=== PATIENT | female | born 1955 | race African-American/Black ===

== ENCOUNTER 2022-10-14 17:18 | Inpatient (IN) | payer MEDICARE ==
[~2022-10-14] VITALS: Ht 157.5 cm; Wt 64.4 kg
[2022-10-14] MEDS ORDERED: ACETAMINOPHEN 325MG TABLET PO ONE (18:15)
[2022-10-14] MEDS ORDERED: IBUPROFEN 400MG TABLET PO ONE (18:15)
[2022-10-14 20:12] LABS: HEMATOCRIT. 34.6 % (36.0-48.0); HEMOGLOBIN. 11.9 g/dL (12.0-16.0); MEAN CORPUSCULAR HEMOGLOBIN 32.1 pg (28.0-32.0); PLATELET 194 x1000/uL (130-400); RED BLOOD CELL COUNT 3.72 mill/uL (4.2-5.4); RED CELL DISTRIBUTION WIDTH 13.1 % (11.6-14.6)
[2022-10-14 20:20] LABS: CHLORIDE 105 mEq/L (98-107); INR 1.1; PROTHROMBIN TIME 11.6 sec (9.6-11.0)
[2022-10-14] MEDS ORDERED: POTASSIUM CHLORIDE 20MEQ TABLET SR PO ONE (20:30)
[2022-10-14] MEDS ORDERED: POTASSIUM CHLORIDE 20MEQ TABLET SR PO NR (20:45)
[2022-10-14 20:51] LABS: PLATELET ESTIMATE NORMAL
[2022-10-14] MEDS ORDERED: CLONIDINE 0.1MG TABLET PO PRN (21:00)
[2022-10-14] MEDS ORDERED: KETOROLAC 15MG/ML VIAL IV PRN (21:00)
[2022-10-14] MEDS ORDERED: NITROGLYCERIN 0.4MG TABLET SL SL PRN (21:00)
[2022-10-14] MEDS ORDERED: GUAIFENESIN 200MG/10ML SUGAR FREE UDC PO PRN (21:00)
[2022-10-14] MEDS ORDERED: MORPHINE SULFATE 2 MG/ML CPJ (NOT FOR IM USE) IV PRN (21:00)
[2022-10-14] MEDS ORDERED: ONDANSETRON HCL 4MG/2ML INJ IV PRN (21:00)
[2022-10-14] MEDS ORDERED: ZOLPIDEM TARTRATE 5MG TABLET PO PRN (21:00)
[2022-10-14] MEDS ORDERED: NA PHOS,M-B/NA PHOS,DI-BA ENEMA 118ML PR PRN (21:00)
[2022-10-14] MEDS ORDERED: DOCUSATE SODIUM 100MG CAPSULE PO PRN (21:00)
[2022-10-14] MEDS ORDERED: HYDROCODONE/ACETAMINOPHEN 10/325MG TABLET PO PRN (21:00)
[2022-10-14] MEDS ORDERED: MAGNESIUM/ALUMINUM HYDROXIDE/SIMETHICONE 30ML UDC PO PRN (21:00)
[2022-10-14] MEDS ORDERED: ACETAMINOPHEN 325MG TABLET PO PRN ×2 (21:00)
[2022-10-14] MEDS ORDERED: IPRATROPIUM/ALBUTEROL 0.5-3(2.5)MG/3ML NEB NEB PRN (21:00)
[2022-10-14] MEDS ORDERED: NALOXONE HCL 0.4MG/ML VIAL IV PRN (21:45)
[2022-10-14 22:04] LABS: ETHANOL BLOOD < 10 mg/dL; LDL CHOLESTEROL 132 mg/dL (5-100); TOTAL IRON BINDING CAPACITY 330 ug/dL (250-450)
[2022-10-14 22:14] LABS: HDL CHOLESTEROL 72 mg/dL (40-59); T4 FREE 1.13 ng/dL (0.76-1.46)
[2022-10-14] MEDS: MAGNESIUM OXIDE 400MG TABLET PO SCH (22:21)
[2022-10-14 22:34] LABS: VITAMIN B12 SERUM 571 pg/mL (211-911)
[2022-10-14 22:37] LABS: FOLIC ACID (FOLATE) SERUM > 20.00 ng/mL (>5.38)
[2022-10-15] MEDS ORDERED: HYDRALAZINE 20MG/ML VIAL IV PRN (01:15)
[2022-10-15] MEDS: FAMOTIDINE 20MG TABLET PO SCH ×3 (03:50→21:00)
[2022-10-15] MEDS: ASCORBIC ACID 500 MG TABLET PO SCH ×3 (03:50→21:00)
[2022-10-15] MEDS: SODIUM CHLORIDE 0.9% 1,000 ML IV SCH ×3 (04:05→22:00)
[2022-10-15 04:26] LABS: HEMATOCRIT. 35.9 % (36.0-48.0); HEMOGLOBIN. 12.4 g/dL (12.0-16.0); MEAN CORPUSCULAR HEMOGLOBIN 32.1 pg (28.0-32.0); MEAN CORPUSCULAR VOLUME 92.8 fL (81.0-99.0); MEAN PLATELET VOLUME 7.7 fl (7.4-10.4); PLATELET 166 x1000/uL (130-400); RED BLOOD CELL COUNT 3.87 mill/uL (4.2-5.4); RED CELL DISTRIBUTION WIDTH 12.8 % (11.6-14.6)
[2022-10-15 04:55] LABS: CHLORIDE 104 mEq/L (98-107)
[2022-10-15 05:01] LABS: PHOSPHORUS 3.2 mg/dL (2.5-4.9)
[2022-10-15] MEDS ORDERED: ENOXAPARIN 40MG/0.4ML SYR SUBCUT SCH (09:00)
[2022-10-15] MEDS: AMLODIPINE 10MG TABLET PO SCH (09:51)
[2022-10-15] MEDS: MAGNESIUM OXIDE 400MG TABLET PO SCH (09:52)
[2022-10-15] MEDS: ZINC SULFATE 220 MG ( 50 ) CAPSULE PO SCH (09:52)
[2022-10-15] MEDS ORDERED: CEFAZOLIN SODIUM 1000MG/VIAL ONE (14:06)
[2022-10-15] MEDS ORDERED: DEXAMETHASONE 4MG/ML 1ML VIAL ONE (14:06)
[2022-10-15] MEDS ORDERED: ONDANSETRON HCL 4MG/2ML INJ ONE (14:06)
[2022-10-15] MEDS ORDERED: ROCURONIUM BROMIDE 10MG/ML VIAL 5ML IV ONE (14:07)
[2022-10-15] MEDS ORDERED: PROPOFOL 200MG/20ML VIAL IV ONE (14:07)
[2022-10-15] MEDS ORDERED: LIDOCAINE HCL 1% 10 MG/ML 10ML VIAL ONE (14:07)
[2022-10-15] MEDS ORDERED: POLYMYXIN B SULFATE 500000 UNITS/VIAL ONE (14:12)
[2022-10-15] MEDS ORDERED: VANCOMYCIN HCL 1 GM/VIAL ONE (14:12)
[2022-10-15] MEDS ORDERED: EPINEPHRINE 1:1000 1 MG/ML AMP ONE (14:13)
[2022-10-15] MEDS ORDERED: BUPIVACAINE HCL/PF 0.5% (5MG/ML) 30ML ONE (14:13)
[2022-10-15] MEDS ORDERED: LIDOCAINE HCL/EPINEPHRINE 1%-EPI 1:100,000 30 ML VIAL INFIL ONE (14:13)
[2022-10-15] MEDS ORDERED: KETOROLAC 30MG/ML VIAL ONE (14:13)
[2022-10-15] MEDS ORDERED: FENTANYL CITRATE/PF 50MCG/ML 2ML VIAL ONE (14:26)
[2022-10-15] MEDS ORDERED: MIDAZOLAM HCL 2 MG/2 ML VIAL ONE (14:26)
[2022-10-15] MEDS ORDERED: HYDROMORPHONE HCL/PF 2MG/ML CPJ IV PRN ×2 (14:30→16:30)
[2022-10-15] MEDS ORDERED: ONDANSETRON HCL 4MG/2ML INJ IV PRN ×2 (14:30→16:30)
[2022-10-15] MEDS ORDERED: HYDROCODONE/ACETAMINOPHEN 5/325MG TABLET PO PRN ×2 (14:30)
[2022-10-15] MEDS ORDERED: LABETALOL 5MG/ML SYR 20 MG/4 ML SYRINGE IV PRN (16:30)
[2022-10-15] MEDS ORDERED: MEPERIDINE HCL/PF 25MG/ML CPJ IV PRN (16:30)
[2022-10-15 16:53] LABS: PLATELET ESTIMATE NORMAL
[2022-10-15] MEDS ORDERED: ONDANSETRON INJ IV PRN (17:15)
[2022-10-15] MEDS ORDERED: NALOXONE INJ IV PRN (17:15)
[2022-10-15] MEDS ORDERED: HYDROMORPHONE PCA 10MG/50ML IV PRN (17:15)
[2022-10-15] MEDS: ATORVASTATIN CALCIUM 40MG TABLET PO SCH (21:00)
[2022-10-15 22:00] VITALS: BP 130/70
[2022-10-16] MEDS: SODIUM CHLORIDE 0.9% 1,000 ML IV SCH ×2 (05:27→18:12)
[2022-10-16] MEDS: CEFAZOLIN 1000MG PREMIX 50 ML IV SCH ×2 (06:11→14:55)
[2022-10-16 07:13] LABS: BASOPHILS % 0.3 % (0.0-2.0); EOSINOPHILS % 0.5 % (0.0-5.0); HEMATOCRIT. 27.3 % (36.0-48.0); HEMOGLOBIN. 9.5 g/dL (12.0-16.0); LYMPHOCYTES % 7.4 % (20.0-50.0); MEAN CORPUSCULAR HEMOGLOBIN 32.5 pg (28.0-32.0); MEAN PLATELET VOLUME 8.4 fl (7.4-10.4); NEUTROPHILS % 82.8 % (40.0-76.0); PLATELET 127 x1000/uL (130-400); RED BLOOD CELL COUNT 2.93 mill/uL (4.2-5.4); RED CELL DISTRIBUTION WIDTH 12.8 % (11.6-14.6)
[2022-10-16 08:00] VITALS: BP 123/64
[2022-10-16] MEDS: FAMOTIDINE 20MG TABLET PO SCH ×2 (08:56→21:07)
[2022-10-16] MEDS: ZINC SULFATE 220 MG ( 50 ) CAPSULE PO SCH (08:56)
[2022-10-16] MEDS: ASCORBIC ACID 500 MG TABLET PO SCH ×2 (08:56→21:07)
[2022-10-16] MEDS: AMLODIPINE 10MG TABLET PO SCH (08:56)
[2022-10-16] MEDS: ENOXAPARIN 40MG/0.4ML SYR SUBCUT SCH (08:57)
[2022-10-16 12:00] VITALS: BP 129/63
[2022-10-16] MEDS ORDERED: ALBUTEROL (0.083%) 2.5MG/3ML NEB HHN PRN (13:15)
[2022-10-16] MEDS ORDERED: IPRATROPIUM BROMIDE (0.02%) 0.5MG/2.5ML NEB HHN PRN (13:15)
[2022-10-16] MEDS ORDERED: HYDRALAZINE 10 MG in SODIUM CHLORIDE 0.9% 49.5 ML IV PRN (15:30)
[2022-10-16 15:54] VITALS: BP 126/63
[2022-10-16 20:34] VITALS: BP 132/54
[2022-10-16] MEDS: ATORVASTATIN CALCIUM 40MG TABLET PO SCH (21:07)
[2022-10-17] VITALS (8 sets, daily range): BP systolic 123–136; BP diastolic 63–68
[2022-10-17] MEDS: SODIUM CHLORIDE 0.9% 1,000 ML IV SCH (04:38)
[2022-10-17 07:03] LABS: BASOPHILS % 0.1 % (0.0-2.0); EOSINOPHILS % 0.6 % (0.0-5.0); HEMATOCRIT. 25.8 % (36.0-48.0); HEMOGLOBIN. 9.1 g/dL (12.0-16.0); LYMPHOCYTES % 8.3 % (20.0-50.0); MEAN CORPUSCULAR HEMOGLOBIN 32.8 pg (28.0-32.0); MEAN CORPUSCULAR VOLUME 92.6 fL (81.0-99.0); MEAN PLATELET VOLUME 8.9 fl (7.4-10.4); PLATELET 118 x1000/uL (130-400); RED BLOOD CELL COUNT 2.78 mill/uL (4.2-5.4)
[2022-10-17 07:24] LABS: CHLORIDE 106 mEq/L (98-107)
[2022-10-17] MEDS ORDERED: BISACODYL 10MG SUPP PR NR (09:15)
[2022-10-17] MEDS ORDERED: POLYETHYLENE GLYCOL 3350 (17GM) 1 DOSE PACK PO SCH (09:15)
[2022-10-17] MEDS: ZINC SULFATE 220 MG ( 50 ) CAPSULE PO SCH (09:21)
[2022-10-17] MEDS: FAMOTIDINE 20MG TABLET PO SCH (09:21)
[2022-10-17] MEDS: ENOXAPARIN 40MG/0.4ML SYR SUBCUT SCH (09:21)
[2022-10-17] MEDS: AMLODIPINE 10MG TABLET PO SCH (09:21)
[2022-10-17] MEDS: ASCORBIC ACID 500 MG TABLET PO SCH (09:21)
[2022-10-17] MEDS ORDERED: HYDROCODONE/ACETAMINOPHEN 10/325MG TABLET PO PRN ×2 (10:15)
[2022-10-17] MEDS ORDERED: IRON SUCROSE COMPLEX 100 MG/5 ML ML IV NR (11:00)
[2022-10-17] MEDS ORDERED: FERROUS SULFATE 300MG/5ML UDC PO SCH (12:50)
== END 2022-10-17 15:26 | DRG 956 ==
LOC: ER 17:18 → MICUSO 20:24 → SUPCPDRO 20:53 → 6EST 10-16 00:04
PROVIDERS: ADMIT Internal Medicine; ATTEND Internal Medicine
PROC: 0SRR01Z Replacement of Right Hip Joint, Femoral Surface with Metal Synthetic Substitute, Open Approach (ICD-10-PCS; principal; 2022-10-15)
DX: S72.001A Fracture of unspecified part of neck of right femur, initial encounter for closed fracture (principal); S32.591A Other specified fracture of right pubis, initial encounter for closed fracture; I16.0 Hypertensive urgency; E78.00 Pure hypercholesterolemia, unspecified; D64.9 Anemia, unspecified; E03.8 Other specified hypothyroidism; E87.6 Hypokalemia; R26.9 Unspecified abnormalities of gait and mobility; E78.5 Hyperlipidemia, unspecified; Z90.710 Acquired absence of both cervix and uterus; Z79.899 Other long term (current) drug therapy; Z82.49 Family history of ischemic heart disease and other diseases of the circulatory system; V89.2XXA Person injured in unspecified motor-vehicle accident, traffic, initial encounter; Y93.89 Activity, other specified; Y92.89 Other specified places as the place of occurrence of the external cause; Y99.8 Other external cause status; I10 Essential (primary) hypertension; Z20.822 Contact with and (suspected) exposure to COVID-19; V09.9XXA Pedestrian injured in unspecified transport accident, initial encounter
CPT/HCPCS: 36415; 71045; 72170; 73502; 73552; 80053; 80061; 80320; 82607; 82746; 83036; 83540; 83550; 83735; 84100; 84439; 84443; 85025; 86850; 86900; 87426; 88311; 93005; 93970; 97116; 97162; 97166; 97530; 99285; J0690; J1100; J1170; J1650; J1885; J2250; J2405; J2704; J3010; J3370; J3490; J7030; C1776; G0480

== ENCOUNTER 2022-10-17 15:26 | Inpatient (IN) | payer OTHER, MEDICARE ==
[~2022-10-17] VITALS: Ht 162.6 cm; Wt 59.9 kg
[2022-10-17 15:30] VITALS: BP 147/63
[2022-10-17] MEDS ORDERED: HYDROCODONE/ACETAMINOPHEN 10/325MG TABLET PO PRN ×2 (16:30)
[2022-10-17] MEDS ORDERED: IPRATROPIUM BROMIDE (0.02%) 0.5MG/2.5ML NEB HHN PRN (16:30)
[2022-10-17] MEDS ORDERED: NA PHOS,M-B/NA PHOS,DI-BA ENEMA 118ML PR PRN (16:30)
[2022-10-17] MEDS ORDERED: ACETAMINOPHEN 325MG TABLET PO PRN (16:30)
[2022-10-17] MEDS ORDERED: GUAIFENESIN 200MG/10ML SUGAR FREE UDC PO PRN (16:30)
[2022-10-17] MEDS ORDERED: HYDRALAZINE 10 MG in SODIUM CHLORIDE 0.9% 49.5 ML IV PRN (16:30)
[2022-10-17] MEDS ORDERED: ZOLPIDEM TARTRATE 5MG TABLET PO PRN (16:30)
[2022-10-17] MEDS ORDERED: NALOXONE HCL 0.4 MG/ML 1ML VIAL IV PRN (16:30)
[2022-10-17] MEDS ORDERED: CLONIDINE 0.1MG TABLET PO PRN (16:30)
[2022-10-17] MEDS ORDERED: ALBUTEROL (0.083%) 2.5MG/3ML NEB HHN PRN (16:30)
[2022-10-17] MEDS ORDERED: MAGNESIUM/ALUMINUM HYDROXIDE/SIMETHICONE 30ML UDC PO PRN (16:30)
[2022-10-17 17:26] VITALS: BP 147/63
[2022-10-17] MEDS: FERROUS SULFATE 300MG/5ML UDC PO SCH (17:59)
[2022-10-17] MEDS ORDERED: PNEUMOCOCCAL 23-VAL P-SAC VAC 0.5 ML IM ONE (19:45)
[2022-10-17] MEDS ORDERED: INFLUENZA VACCINE 05/PF 0.5 ML SYRINGE IM ONE (19:45)
[2022-10-17 19:48] VITALS: BP 110/56
[2022-10-17] MEDS: ATORVASTATIN CALCIUM 40MG TABLET PO SCH (21:04)
[2022-10-17] MEDS: ASCORBIC ACID 500 MG TABLET PO SCH (21:04)
[2022-10-18] MEDS: SODIUM CHLORIDE 0.9% 1,000 ML IV SCH ×3 (01:50→22:00)
[2022-10-18 06:11] LABS: CHLORIDE 103 mEq/L (98-107)
[2022-10-18 06:26] LABS: BASOPHILS % 0.8 % (0.0-2.0); EOSINOPHILS % 2.8 % (0.0-5.0); HEMATOCRIT. 24.8 % (36.0-48.0); HEMOGLOBIN. 8.7 g/dL (12.0-16.0); LYMPHOCYTES % 11.6 % (20.0-50.0); MEAN CORPUSCULAR HEMOGLOBIN 32.3 pg (28.0-32.0); MEAN CORPUSCULAR VOLUME 92.4 fL (81.0-99.0); MEAN PLATELET VOLUME 9.1 fl (7.4-10.4); MONOCYTES % 9.6 % (2.0-8.0); NEUTROPHILS % 75.2 % (40.0-76.0); PLATELET 123 x1000/uL (130-400); RED BLOOD CELL COUNT 2.68 mill/uL (4.2-5.4); RED CELL DISTRIBUTION WIDTH 12.7 % (11.6-14.6)
[2022-10-18 06:28] LABS: TOTAL IRON BINDING CAPACITY 209 ug/dL (250-450)
[2022-10-18 06:36] LABS: FOLIC ACID (FOLATE) SERUM 19.5 ng/mL (>5.38)
[2022-10-18 08:00] VITALS: BP 133/62
[2022-10-18] MEDS: KETOROLAC 15MG/ML VIAL IV PRN (09:00)
[2022-10-18] MEDS: ENOXAPARIN 40MG/0.4ML SYR SUBCUT SCH (09:01)
[2022-10-18] MEDS: POLYETHYLENE GLYCOL 3350 (17GM) 1 DOSE PACK PO SCH (09:02)
[2022-10-18] MEDS: ASCORBIC ACID 500 MG TABLET PO SCH ×2 (09:02→20:54)
[2022-10-18] MEDS: FAMOTIDINE 20MG TABLET PO SCH (09:02)
[2022-10-18] MEDS: FERROUS SULFATE 300MG/5ML UDC PO SCH ×3 (09:02→16:50)
[2022-10-18] MEDS: ZINC SULFATE 220 MG ( 50 ) CAPSULE PO SCH (09:02)
[2022-10-18] MEDS: AMLODIPINE 10MG TABLET PO SCH (09:03)
[2022-10-18 20:00] VITALS: BP 111/52
[2022-10-18] MEDS: ATORVASTATIN CALCIUM 40MG TABLET PO SCH (20:54)
[2022-10-19] MEDS: SODIUM CHLORIDE 0.9% 1,000 ML IV SCH ×2 (07:18→17:50)
[2022-10-19 08:00] VITALS: BP 109/57
[2022-10-19] MEDS: KETOROLAC 15MG/ML VIAL IV PRN (08:49)
[2022-10-19] MEDS: FERROUS SULFATE 300MG/5ML UDC PO SCH ×3 (09:54→17:49)
[2022-10-19] MEDS: POLYETHYLENE GLYCOL 3350 (17GM) 1 DOSE PACK PO SCH (09:54)
[2022-10-19] MEDS: AMLODIPINE 10MG TABLET PO SCH (10:00)
[2022-10-19] MEDS: FAMOTIDINE 20MG TABLET PO SCH (10:01)
[2022-10-19] MEDS: ASCORBIC ACID 500 MG TABLET PO SCH ×2 (10:01→21:51)
[2022-10-19] MEDS: DOCUSATE SODIUM 100MG CAPSULE PO PRN (10:02)
[2022-10-19] MEDS: ENOXAPARIN 40MG/0.4ML SYR SUBCUT SCH (10:02)
[2022-10-19] MEDS: ZINC SULFATE 220 MG ( 50 ) CAPSULE PO SCH (10:08)
[2022-10-19] MEDS: ACETAMINOPHEN 325MG TABLET PO PRN (10:09)
[2022-10-19] MEDS ORDERED: NALOXONE HCL 0.4MG/ML VIAL IV PRN (11:00)
[2022-10-19] MEDS: TRAMADOL 50MG TABLET PO PRN (13:01)
[2022-10-19 20:00] VITALS: BP 122/54
[2022-10-19] MEDS: ATORVASTATIN CALCIUM 40MG TABLET PO SCH (21:50)
[2022-10-19] MEDS ORDERED: SODIUM CHLORIDE 0.9% 1,000 ML IV ONE (22:00)
[2022-10-20] MEDS: SODIUM CHLORIDE 0.9% 1,000 ML IV SCH (04:00)
[2022-10-20 08:00] VITALS: BP 117/63
[2022-10-20] MEDS: POLYETHYLENE GLYCOL 3350 (17GM) 1 DOSE PACK PO SCH (09:00)
[2022-10-20] MEDS: FERROUS SULFATE 300MG/5ML UDC PO SCH ×3 (09:12→17:43)
[2022-10-20] MEDS: FAMOTIDINE 20MG TABLET PO SCH (09:13)
[2022-10-20] MEDS: ASCORBIC ACID 500 MG TABLET PO SCH ×2 (09:13→20:45)
[2022-10-20] MEDS: ZINC SULFATE 220 MG ( 50 ) CAPSULE PO SCH (09:13)
[2022-10-20] MEDS: DOCUSATE SODIUM 100MG CAPSULE PO PRN (09:13)
[2022-10-20] MEDS: AMLODIPINE 10MG TABLET PO SCH (09:13)
[2022-10-20] MEDS: ENOXAPARIN 40MG/0.4ML SYR SUBCUT SCH (09:14)
[2022-10-20 20:00] VITALS: BP 120/56
[2022-10-20] MEDS: ATORVASTATIN CALCIUM 40MG TABLET PO SCH (20:45)
[2022-10-21] MEDS: TRAMADOL 50MG TABLET PO PRN ×2 (07:00→13:43)
[2022-10-21 08:00] VITALS: BP 126/60
[2022-10-21] MEDS: FERROUS SULFATE 300MG/5ML UDC PO SCH ×3 (09:21→17:19)
[2022-10-21] MEDS: ASCORBIC ACID 500 MG TABLET PO SCH ×2 (09:21→20:12)
[2022-10-21] MEDS: POLYETHYLENE GLYCOL 3350 (17GM) 1 DOSE PACK PO SCH (09:22)
[2022-10-21] MEDS: FAMOTIDINE 20MG TABLET PO SCH (09:22)
[2022-10-21] MEDS: ENOXAPARIN 40MG/0.4ML SYR SUBCUT SCH (09:22)
[2022-10-21] MEDS: ZINC SULFATE 220 MG ( 50 ) CAPSULE PO SCH (09:22)
[2022-10-21] MEDS: AMLODIPINE 10MG TABLET PO SCH (09:22)
[2022-10-21 19:10] LABS: 25-HYDROXY VITAMIN D3 25 ng/mL (.)
[2022-10-21 20:00] VITALS: BP 110/59
[2022-10-21] MEDS: ATORVASTATIN CALCIUM 40MG TABLET PO SCH (20:12)
[2022-10-22] MEDS: TRAMADOL 50MG TABLET PO PRN ×2 (05:24→12:53)
[2022-10-22 08:00] VITALS: BP 114/60
[2022-10-22] MEDS: ASCORBIC ACID 500 MG TABLET PO SCH ×2 (08:59→20:23)
[2022-10-22] MEDS: ZINC SULFATE 220 MG ( 50 ) CAPSULE PO SCH (08:59)
[2022-10-22] MEDS: AMLODIPINE 10MG TABLET PO SCH (08:59)
[2022-10-22] MEDS: FAMOTIDINE 20MG TABLET PO SCH (08:59)
[2022-10-22] MEDS: ENOXAPARIN 40MG/0.4ML SYR SUBCUT SCH (08:59)
[2022-10-22] MEDS: FERROUS SULFATE 300MG/5ML UDC PO SCH ×3 (08:59→16:46)
[2022-10-22] MEDS: POLYETHYLENE GLYCOL 3350 (17GM) 1 DOSE PACK PO SCH (09:02)
[2022-10-22] MEDS ORDERED: ERGOCALCIFEROL 50000UNITS CAPSULE PO SCH (15:00)
[2022-10-22] MEDS: DOCUSATE SODIUM 100MG CAPSULE PO SCH (16:51)
[2022-10-22] MEDS: CYANOCOBALAMIN 1000MCG/ML VIAL IM SCH (16:52)
[2022-10-22 19:46] VITALS: BP 128/61
[2022-10-22] MEDS: ATORVASTATIN CALCIUM 40MG TABLET PO SCH (20:23)
[2022-10-22] MEDS: ACETAMINOPHEN 325MG TABLET PO PRN (23:11)
[2022-10-23] MEDS: TRAMADOL 50MG TABLET PO PRN ×5 (05:07→21:58)
[2022-10-23 07:41] LABS: CHLORIDE 102 mEq/L (98-107)
[2022-10-23 07:46] LABS: BASOPHILS % 0.7 % (0.0-2.0); EOSINOPHILS % 2.3 % (0.0-5.0); HEMATOCRIT. 25.1 % (36.0-48.0); HEMOGLOBIN. 8.8 g/dL (12.0-16.0); LYMPHOCYTES % 9.8 % (20.0-50.0); MEAN CORPUSCULAR HEMOGLOBIN 33.1 pg (28.0-32.0); MEAN CORPUSCULAR VOLUME 94.6 fL (81.0-99.0); MEAN PLATELET VOLUME 8.5 fl (7.4-10.4); MONOCYTES % 10.1 % (2.0-8.0); NEUTROPHILS % 77.1 % (40.0-76.0); PLATELET 289 x1000/uL (130-400); RED BLOOD CELL COUNT 2.65 mill/uL (4.2-5.4)
[2022-10-23 08:00] VITALS: BP 107/50
[2022-10-23] MEDS: CYANOCOBALAMIN 1000MCG/ML VIAL IM SCH (08:42)
[2022-10-23] MEDS: DOCUSATE SODIUM 100MG CAPSULE PO SCH ×2 (08:42→16:20)
[2022-10-23] MEDS: ZINC SULFATE 220 MG ( 50 ) CAPSULE PO SCH (08:42)
[2022-10-23] MEDS: AMLODIPINE 10MG TABLET PO SCH (08:42)
[2022-10-23] MEDS: FAMOTIDINE 20MG TABLET PO SCH (08:42)
[2022-10-23] MEDS: POLYETHYLENE GLYCOL 3350 (17GM) 1 DOSE PACK PO SCH (08:43)
[2022-10-23] MEDS: ENOXAPARIN 40MG/0.4ML SYR SUBCUT SCH (08:44)
[2022-10-23] MEDS: FERROUS SULFATE 300MG/5ML UDC PO SCH ×3 (08:46→16:20)
[2022-10-23] MEDS: ASCORBIC ACID 500 MG TABLET PO SCH ×2 (08:46→21:00)
[2022-10-23 20:00] VITALS: BP 124/63
[2022-10-23] MEDS: ATORVASTATIN CALCIUM 40MG TABLET PO SCH (21:00)
[2022-10-24] MEDS: TRAMADOL 50MG TABLET PO PRN ×2 (04:58→21:40)
[2022-10-24 08:00] VITALS: BP 120/55
[2022-10-24] MEDS: ASCORBIC ACID 500 MG TABLET PO SCH ×2 (09:00→20:50)
[2022-10-24] MEDS: ZINC SULFATE 220 MG ( 50 ) CAPSULE PO SCH (10:16)
[2022-10-24] MEDS: FERROUS SULFATE 300MG/5ML UDC PO SCH ×3 (10:16→18:34)
[2022-10-24] MEDS: POLYETHYLENE GLYCOL 3350 (17GM) 1 DOSE PACK PO SCH (10:17)
[2022-10-24] MEDS: AMLODIPINE 10MG TABLET PO SCH (10:17)
[2022-10-24] MEDS: DOCUSATE SODIUM 100MG CAPSULE PO SCH ×2 (10:17→18:35)
[2022-10-24] MEDS: HYDROCODONE/ACETAMINOPHEN 5/325MG TABLET PO PRN (10:17)
[2022-10-24] MEDS: FAMOTIDINE 20MG TABLET PO SCH (10:17)
[2022-10-24] MEDS: ENOXAPARIN 40MG/0.4ML SYR SUBCUT SCH (11:54)
[2022-10-24] MEDS: CYANOCOBALAMIN 1000MCG/ML VIAL IM SCH (11:54)
[2022-10-24] MEDS ORDERED: LACTULOSE 20G/30ML UDC PO SCH ×3 (15:00→22:00)
[2022-10-24 20:00] VITALS: BP 119/53
[2022-10-24] MEDS: ATORVASTATIN CALCIUM 40MG TABLET PO SCH (20:50)
[2022-10-25] MEDS: HYDROCODONE/ACETAMINOPHEN 5/325MG TABLET PO PRN ×3 (03:36→23:02)
[2022-10-25] MEDS ORDERED: ZINC220C2 PO (10:04)
[2022-10-25] MEDS ORDERED: AMLO10TA80 PO (10:04)
[2022-10-25] MEDS ORDERED: DOCU-150 PO (10:04)
[2022-10-25] MEDS ORDERED: LIP40 PO (10:04)
[2022-10-25] MEDS ORDERED: FE300LUD PO (10:04)
[2022-10-25] MEDS ORDERED: ASCO500T20 PO (10:04)
[2022-10-25 11:00] VITALS: BP 118/64
[2022-10-25] MEDS: DOCUSATE SODIUM 100MG CAPSULE PO SCH ×2 (11:00→18:14)
[2022-10-25] MEDS: AMLODIPINE 10MG TABLET PO SCH (11:01)
[2022-10-25] MEDS: FAMOTIDINE 20MG TABLET PO SCH (11:01)
[2022-10-25] MEDS: ZINC SULFATE 220 MG ( 50 ) CAPSULE PO SCH (11:01)
[2022-10-25] MEDS: ASCORBIC ACID 500 MG TABLET PO SCH ×2 (11:01→21:25)
[2022-10-25] MEDS: POLYETHYLENE GLYCOL 3350 (17GM) 1 DOSE PACK PO SCH (11:02)
[2022-10-25] MEDS: ENOXAPARIN 40MG/0.4ML SYR SUBCUT SCH (11:02)
[2022-10-25] MEDS: FERROUS SULFATE 300MG/5ML UDC PO SCH ×3 (11:05→18:14)
[2022-10-25 20:00] VITALS: BP 135/67
[2022-10-25] MEDS: ATORVASTATIN CALCIUM 40MG TABLET PO SCH (21:25)
[2022-10-26 08:00] VITALS: BP 129/62
[2022-10-26] MEDS: DOCUSATE SODIUM 100MG CAPSULE PO SCH (09:03)
[2022-10-26] MEDS: POLYETHYLENE GLYCOL 3350 (17GM) 1 DOSE PACK PO SCH (09:03)
[2022-10-26] MEDS: FAMOTIDINE 20MG TABLET PO SCH (09:03)
[2022-10-26] MEDS: ASCORBIC ACID 500 MG TABLET PO SCH (09:03)
[2022-10-26] MEDS: AMLODIPINE 10MG TABLET PO SCH (09:03)
[2022-10-26] MEDS: ZINC SULFATE 220 MG ( 50 ) CAPSULE PO SCH (09:03)
[2022-10-26] MEDS: FERROUS SULFATE 300MG/5ML UDC PO SCH (09:03)
[2022-10-26] MEDS: ENOXAPARIN 40MG/0.4ML SYR SUBCUT SCH (09:04)
[2022-10-26] MEDS ORDERED: CHOL125C7 PO (09:35)
[2022-10-26 09:48] VITALS: BP 129/62
== END 2022-10-26 10:30 | disposition home health service (06) | DRG 964 ==
PROVIDERS: ADMIT Physical Medicine & Rehabilitation Spinal Cord Injury Medicine; ATTEND Internal Medicine
DX: S72.031A Displaced midcervical fracture of right femur, initial encounter for closed fracture (principal); S32.591A Other specified fracture of right pubis, initial encounter for closed fracture; E44.0 Moderate protein-calorie malnutrition; I10 Essential (primary) hypertension; D64.9 Anemia, unspecified; E55.9 Vitamin D deficiency, unspecified; E78.00 Pure hypercholesterolemia, unspecified; F39 Unspecified mood [affective] disorder; F43.10 Post-traumatic stress disorder, unspecified; Z60.2 Problems related to living alone; R53.81 Other malaise; R94.6 Abnormal results of thyroid function studies; R53.1 Weakness; R26.2 Difficulty in walking, not elsewhere classified; V03.10XA Pedestrian on foot injured in collision with car, pick-up truck or van in traffic accident, initial encounter; Z82.49 Family history of ischemic heart disease and other diseases of the circulatory system; Z90.710 Acquired absence of both cervix and uterus; Z91.81 History of falling; Z68.22 Body mass index [BMI] 22.0-22.9, adult; Z79.899 Other long term (current) drug therapy; Y93.89 Activity, other specified; Y92.89 Other specified places as the place of occurrence of the external cause; Y99.8 Other external cause status; Z88.5 Allergy status to narcotic agent
CPT/HCPCS: 36415; 80048; 80053; 82306; 82607; 82728; 82746; 82962; 83036; 83540; 83550; 84134; 84443; 85025; 90686; 90732; 93970; 97110; 97116; 97162; 97166; 97530; 97535; C1893; J1650; J1885; J3420; J7030